=== PATIENT | male | born 1945 | race Caucasian/White ===

== ENCOUNTER 2016-12-17 07:24 | Observation (INO) | payer OTHER ==
[~2016-12-17] VITALS: Ht 172.7 cm; Wt 74.2 kg
[~2016-12-17 07:24] MED LIST: ANORO ELLIPTA1 EACH IH; ATORVASTATIN CA20 MG PO; LISINOPRIL10 MG PO; LISINOPRIL5 MG PO; OFEV150 MG PO; OMEPRAZOLE20 MG PO; ZOLPIDEM TART12.5 MG PO
[2016-12-17] MEDS ORDERED: SPORANOX100 MG PO (08:01)
[2016-12-17] MEDS ORDERED: FAMCICLOVIR500 MG PO (08:01)
[2016-12-17 08:14] LABS: HEMATOCRIT 37.6 % (38.0-50.0); MCH 28.6 PG (29.0-34.0); MEAN PLAT.VOLUME 8.7 uM^3 (9.0-12.4); PLATELET COUNT 336 K/uL (156-360); RBC DIS.WIDTH-CV 12.5 % (11.8-14.6); RBC DIS.WIDTH-SD 37.7 % (39-53); RED BLOOD COUNT 4.47 M/uL (4.00-5.50); WHITE BLOOD COUNT 10.5 K/uL (4.1-10.2)
[2016-12-17 08:17] LABS: MCV 84.1 FL (86-99)
[2016-12-17 08:27] LABS: CHLORIDE 101 mEq/L (99-109); POTASSIUM 4.3 mEq/L (3.7-5.4); SODIUM 137 mEq/L (136-147)
[2016-12-17 08:28] LABS: GLUCOSE 196 mg/dL (70-99)
[2016-12-17 08:30] LABS: ANION GAP 16 MEQ/L (2-14)
[2016-12-17 08:32] LABS: GFR ESTIMATE (CALCULATED) > 59 mL/min/
[2016-12-17 08:33] LABS: UREA NITROGEN (BUN) 17 mg/dL (9-23)
[2016-12-17 08:36] LABS: TROP-I INTERPRETATION NEGATIVE; TROPONIN-I < 0.01 ng/mL (0.0-0.30)
[2016-12-17 11:38] LABS: ADD MIUA? NO; BILIRUBIN NEGATIVE; BLOOD NEGATIVE; COLOR YELLOW ((YELLOW)); GLUCOSE (STRIP) NEGATIVE; KETONES NEGATIVE; LEUKOCYTES NEGATIVE; NITRITE NEGATIVE; PROTEIN (STRIP) NEGATIVE
[2016-12-17] MEDS ORDERED: FLONASE16 G1 BOTH NARES (11:40)
[2016-12-17] MEDS ORDERED: IMODIUM A-D2 M2 PO (11:42)
[2016-12-17] MEDS ORDERED: TUMS500 MG PO (11:43)
[2016-12-17 11:53] LABS: SPECIFIC GRAVITY 1.074 (1.000-1.030)
[2016-12-17 13:15] VITALS: BP 123/71
[2016-12-17] MEDS ORDERED: OFEV150 MG PO (13:38)
[2016-12-17 15:10] LABS: INTER. NORMALIZED RATIO 1.2; PROTHROMBIN TIME 12.1 (9.2-11.2); PTT 31.9 (25-32)
[2016-12-17 16:57] VITALS: BP 156/70
[2016-12-17 17:52] LABS: TROP-I INTERPRETATION NEGATIVE; TROPONIN-I < 0.01 ng/mL (0.0-0.30)
[2016-12-17 18:57] LABS: METH RESISTANT S AUREUS PCR NEGATIVE (NEGATIVE)
[2016-12-17 19:16] LABS: PROBE CHECK PASS; SPECIMEN PROCESSING CONTROL PASS
[2016-12-17 21:30] VITALS: BP 126/66
[2016-12-17 22:19] LABS: INFLUENZA A VIRAL ANTIGEN NEGATIVE; INFLUENZA B VIRAL ANTIGEN NEGATIVE
[2016-12-18 00:30] VITALS: BP 131/63
[2016-12-18 01:32] LABS: TROP-I INTERPRETATION NEGATIVE; TROPONIN-I 0.02 ng/mL (0.0-0.30)
[2016-12-18 04:12] VITALS: BP 120/61
[2016-12-18 07:29] VITALS: BP 123/73
[2016-12-18 10:25] VITALS: BP 128/67
[2016-12-18 12:27] VITALS: BP 113/57
[2016-12-18] MEDS ORDERED: LEVAQUIN500 MG PO (16:03)
[2016-12-18 16:35] VITALS: BP 148/70
== END 2016-12-18 17:32 | disposition home or self-care (01) ==
LOC: EME 07:24 → EDOF 11:51 → 5WEST 11:51
PROVIDERS: Internal Medicine; Internal Medicine Pulmonary Disease; Nurse Practitioner Family
PROC: 0BBJ3ZX Excision of Left Lower Lung Lobe, Percutaneous Approach, Diagnostic (ICD-10-PCS; principal; 2016-12-18)
DX: R06.02 Shortness of breath (principal); R41.0 Disorientation, unspecified; B39.2 Pulmonary histoplasmosis capsulati, unspecified; J84.10 Pulmonary fibrosis, unspecified; J44.9 Chronic obstructive pulmonary disease, unspecified; R91.8 Other nonspecific abnormal finding of lung field; R73.03 Prediabetes; K21.9 Gastro-esophageal reflux disease without esophagitis; R63.4 Abnormal weight loss; R50.9 Fever, unspecified; E78.5 Hyperlipidemia, unspecified; Z88.0 Allergy status to penicillin; Z88.1 Allergy status to other antibiotic agents; Z87.891 Personal history of nicotine dependence; Z82.49 Family history of ischemic heart disease and other diseases of the circulatory system
CPT/HCPCS: 70450; 71260; 77012; 80048; 81003; 82803; 84484; 85027; 85610; 85730; 87070; 87075; 87205; 87449; 87502; 87641; 93005; 94640; 99281; 99285; G0378; J1650; J1956; J3010

== ENCOUNTER 2017-01-07 07:30 | Day surgery (SDC) | payer OTHER ==
[~2017-01-07] VITALS: Ht 172.7 cm; Wt 71.0 kg
[~2017-01-07 07:30] MED LIST changes: +FAMCICLOVIR500 MG PO; +FLONASE16 G1 BOTH NARES; +IMODIUM A-D2 M2 PO; +LEVAQUIN500 MG PO; +OFEV100 MG PO; +PRILOSEC20 MG PO; +REMERON15 M2 PO; +SPORANOX100 MG PO; +TUMS500 MG PO
[2017-01-07 08:10] VITALS: BP 121/67
[2017-01-07 09:21] LABS: HEMATOCRIT 35.3 % (38.0-50.0); MCH 26.9 PG (29.0-34.0); MCHC 31.7 G/DL (30.0-36.0); MCV 84.9 FL (86-99); MEAN PLAT.VOLUME 9.2 uM^3 (9.0-12.4); PLATELET COUNT 303 K/uL (156-360); RBC DIS.WIDTH-CV 14.1 % (11.8-14.6); RBC DIS.WIDTH-SD 43.2 % (39-53); RED BLOOD COUNT 4.16 M/uL (4.00-5.50); WHITE BLOOD COUNT 10.1 K/uL (4.1-10.2)
[2017-01-07] MEDS ORDERED: HYDROCODON-ACE1 EAC7 PO (11:45)
[2017-01-07] MEDS ORDERED: COLACE100 MG PO (11:45)
[2017-01-07 12:44] VITALS: BP 118/59
[2017-01-07 13:36] VITALS: BP 136/65
[2017-01-08] MEDS ORDERED: PROAIR HFA8.5 GM IH (13:17)
[2017-01-08] MEDS ORDERED: LISINOPRIL5 MG PO (13:18)
== END 2017-01-07 14:44 | disposition home or self-care (01) ==
LOC: SDC 07:30
PROVIDERS: Thoracic Surgery (Cardiothoracic Vascular Surgery)
PROC: 07B74ZX Excision of Thorax Lymphatic, Percutaneous Endoscopic Approach, Diagnostic (ICD-10-PCS; principal; 2017-01-07)
DX: C34.32 Malignant neoplasm of lower lobe, left bronchus or lung (principal); Z87.891 Personal history of nicotine dependence; J84.10 Pulmonary fibrosis, unspecified; B39.9 Histoplasmosis, unspecified; J44.9 Chronic obstructive pulmonary disease, unspecified; Z86.14 Personal history of Methicillin resistant Staphylococcus aureus infection; I10 Essential (primary) hypertension; E11.9 Type 2 diabetes mellitus without complications; K21.9 Gastro-esophageal reflux disease without esophagitis; Z87.828 Personal history of other (healed) physical injury and trauma; Z88.0 Allergy status to penicillin; Z88.1 Allergy status to other antibiotic agents
CPT/HCPCS: 71010; 85027; 86850; 86900; 86901; 87102; 88305; 88341 TC; 88342 TC; J0330; J2250; J2405; J2710; J3010

== ENCOUNTER 2017-01-07 20:30 | Inpatient (IN) | payer OTHER ==
[~2017-01-07] VITALS: Ht 172.7 cm; Wt 75.1 kg
[~2017-01-07 20:30] MED LIST changes: +COLACE100 MG PO; +HYDROCODON-ACE1 EAC7 PO
[2017-01-07 21:24] LABS: EOSINOPHIL (%) 1.8 % (0-5); EOSINOPHIL COUNT 0.2 K/uL (0-0.3); HEMATOCRIT 32.3 % (38.0-50.0); IMMATURE GRANULOCYTE (%) 0.7 % (0.0-0.7); IMMATURE GRANULOCYTE COUNT 0.1 K/uL; LYMPHOCYTE COUNT 0.9 K/uL (1.0-2.8); MCH 27.4 PG (29.0-34.0); MCHC 32.2 G/DL (30.0-36.0); MCV 85.2 FL (86-99); MEAN PLAT.VOLUME 8.9 uM^3 (9.0-12.4); MONOCYTE (%) 8.9 % (3-12); MONOCYTE COUNT 0.9 K/uL (0-0.8); NEUTROPHIL (%) 79.3 % (45-76); PLATELET COUNT 295 K/uL (156-360); RBC DIS.WIDTH-CV 13.8 % (11.8-14.6); RBC DIS.WIDTH-SD 42.8 % (39-53); RED BLOOD COUNT 3.79 M/uL (4.00-5.50); WHITE BLOOD COUNT 10.1 K/uL (4.1-10.2)
[2017-01-07 21:42] LABS: CHLORIDE 102 mEq/L (99-109)
[2017-01-07 21:43] LABS: POTASSIUM 4.1 mEq/L (3.7-5.4); SODIUM 138 mEq/L (136-147)
[2017-01-07 21:44] LABS: GLUCOSE 158 mg/dL (70-99)
[2017-01-07 21:46] LABS: ANION GAP 12 MEQ/L (2-14)
[2017-01-07 21:48] LABS: GFR ESTIMATE (CALCULATED) > 59 mL/min/
[2017-01-07 21:49] LABS: UREA NITROGEN (BUN) 19 mg/dL (9-23)
[2017-01-07 22:18] LABS: TROP-I INTERPRETATION NEGATIVE; TROPONIN-I 0.01 ng/mL (0.0-0.30)
[2017-01-07 23:41] LABS: ADD MIUA? NO; BILIRUBIN NEGATIVE; BLOOD NEGATIVE; COLOR YELLOW ((YELLOW)); GLUCOSE (STRIP) NEGATIVE; KETONES NEGATIVE; LEUKOCYTES NEGATIVE; NITRITE NEGATIVE; PROTEIN (STRIP) 30; SPECIFIC GRAVITY 1.018 (1.000-1.030); UCUL ADDED? NO; UROBILINOGEN 0.2 MG/DL (0.2-1.0)
[2017-01-08 00:17] LABS: INFLUENZA A VIRAL ANTIGEN NEGATIVE; INFLUENZA B VIRAL ANTIGEN NEGATIVE
[2017-01-08 05:42] VITALS: BP 125/63
[2017-01-08 08:58] VITALS: BP 121/70
[2017-01-08] MEDS ORDERED: PROAIR HFA8.5 GM IH (13:17)
[2017-01-08] MEDS ORDERED: LISINOPRIL5 MG PO (13:18)
[2017-01-08 16:02] VITALS: BP 145/66
[2017-01-08 22:36] VITALS: BP 117/62
[2017-01-09 04:00] VITALS: BP 122/74
[2017-01-09 06:32] LABS: HEMATOCRIT 34.5 % (38.0-50.0); MCH 26.7 PG (29.0-34.0); MCHC 30.4 G/DL (30.0-36.0); MCV 87.8 FL (86-99); MEAN PLAT.VOLUME 9.2 uM^3 (9.0-12.4); PLATELET COUNT 265 K/uL (156-360); RBC DIS.WIDTH-CV 13.6 % (11.8-14.6); RBC DIS.WIDTH-SD 43.4 % (39-53); RED BLOOD COUNT 3.93 M/uL (4.00-5.50)
[2017-01-09 06:33] LABS: WHITE BLOOD COUNT 6.6 K/uL (4.1-10.2)
[2017-01-09 07:08] LABS: ALKALINE PHOSPHATASE 89 IU/L (3-129); ANION GAP 13 MEQ/L (2-14); CHLORIDE 102 MEQ/L (99-109); GFR ESTIMATE (CALCULATED) > 59 mL/min/; GLUCOSE 183 mg/dL (70-99); POTASSIUM 4.1 MEQ/L (3.7-5.4); SAMPLE HEMOLYSIS CHECK 0; SAMPLE ICTERIC CHECK 0; SAMPLE LIPEMIA CHECK 0; SODIUM 138 MEQ/L (136-147); TOTAL BILIRUBIN 0.5 MG/DL (0.0-1.0); UREA NITROGEN (BUN) 13 mg/dL (9-23)
[2017-01-09 07:25] VITALS: BP 120/67
[2017-01-09 08:57] LABS: INTERNAL CONTROL VALID? YES
[2017-01-09 11:25] VITALS: BP 126/69
[2017-01-09] MEDS ORDERED: LEVOFLOXACIN750 MG PO (16:08)
[2017-01-09] MEDS ORDERED: PREDNISONE5 MG PO (16:10)
[2017-01-09] MEDS ORDERED: ACIDOPHILUS LA1 EACH PO (16:10)
== END 2017-01-09 16:47 | disposition home or self-care (01) | DRG 191 ==
LOC: EME 20:30 → 5EAST 01-08 02:32 → EDOF 01-08 02:32 → 5EAST 01-08 05:37
PROVIDERS: Emergency Medicine; Internal Medicine
DX: J44.0 Chronic obstructive pulmonary disease with (acute) lower respiratory infection (principal); J20.9 Acute bronchitis, unspecified; C34.32 Malignant neoplasm of lower lobe, left bronchus or lung; C77.1 Secondary and unspecified malignant neoplasm of intrathoracic lymph nodes; J84.112 Idiopathic pulmonary fibrosis; R78.5 Finding of other psychotropic drug in blood; I10 Essential (primary) hypertension; R73.03 Prediabetes; K21.9 Gastro-esophageal reflux disease without esophagitis; Z88.0 Allergy status to penicillin; Z88.1 Allergy status to other antibiotic agents; Z87.891 Personal history of nicotine dependence
CPT/HCPCS: 71010; 71020; 71260; 80048; 80053; 81003; 83605; 83880; 84145 90; 84484; 85025; 85027; 86850; 86900; 86901; 87040; 87102; 87449; 87493; 87502; 88305; 88341 TC; 88342 TC; 93005; 94640; 94799; 99281; 99285; J0330; J1956; J2250; J2405; J2710; J3010; J3370; J7512

== ENCOUNTER 2017-02-13 17:23 | Inpatient (IN) | payer OTHER ==
[~2017-02-13] VITALS: Ht 172.7 cm; Wt 74.6 kg
[~2017-02-13 17:23] MED LIST changes: +ACIDOPHILUS LA1 EACH PO; +COMPAZINE10 MG PO; +CYANOCOBALAM1000 MCG PO; +DRONABINOL2.5 MG PO; +LEVOFLOXACIN750 MG PO; +MIRTAZAPINE15 MG PO; +PREDNISONE5 MG PO; +PROAIR HFA8.5 GM IH; +ZOFRAN8 MG PO
[2017-02-13 17:58] LABS: MCH 25.5 PG (29.0-34.0); MCHC 32.1 G/DL (30.0-36.0); MCV 79.5 FL (86-99); MEAN PLAT.VOLUME 8.3 uM^3 (9.0-12.4); RBC DIS.WIDTH-CV 15.3 % (11.8-14.6); RBC DIS.WIDTH-SD 44.3 % (39-53); RED BLOOD COUNT 3.65 M/uL (4.00-5.50)
[2017-02-13 17:59] LABS: PLATELET COUNT 204 K/uL (156-360); WHITE BLOOD COUNT 1.4 K/uL (4.1-10.2)
[2017-02-13 18:06] LABS: CHLORIDE 96 mEq/L (99-109); POTASSIUM 3.8 mEq/L (3.7-5.4); SODIUM 131 mEq/L (136-147)
[2017-02-13 18:09] LABS: GLUCOSE 132 mg/dL (70-99)
[2017-02-13 18:10] LABS: ANION GAP 12 MEQ/L (2-14)
[2017-02-13 18:11] LABS: TOTAL BILIRUBIN 0.7 mg/dL (0.0-1.0)
[2017-02-13 18:12] LABS: ALKALINE PHOSPHATASE 97 IU/L (3-129); GFR ESTIMATE (CALCULATED) > 59 mL/min/
[2017-02-13 18:13] LABS: UREA NITROGEN (BUN) 22 mg/dL (9-23)
[2017-02-13 18:17] LABS: TROP-I INTERPRETATION NEGATIVE; TROPONIN-I < 0.01 ng/mL (0.0-0.30)
[2017-02-13 19:36] LABS: ADD MIUA? NO; BILIRUBIN NEGATIVE; BLOOD NEGATIVE; COLOR YELLOW ((YELLOW)); GLUCOSE (STRIP) 150; KETONES NEGATIVE; LEUKOCYTES NEGATIVE; NITRITE NEGATIVE; PROTEIN (STRIP) 30; SPECIFIC GRAVITY 1.015 (1.000-1.030); UCUL ADDED? NO; UROBILINOGEN 0.2 MG/DL (0.2-1.0)
[2017-02-13 19:57] LABS: ABS NEUTROPHIL COUNT 0.5; BAND NEUTROPHILS 2.8 % (0-8.0); EOSINOPHIL ABS CT 0; INSTRUMENT ABS NEUTROPHIL CT 0.7 K/uL; METAMYELOCYTES 0.9 %
[2017-02-13 19:58] LABS: LYMPHOCYTES 60.5 % (15.0-45.0); SEG.NEUTROPHILS 32.1 % (46.0-76.0)
[2017-02-13] MEDS ORDERED: PROBIOTIC1 EAC1 PO (20:20)
[2017-02-13] MEDS ORDERED: FOLIC ACID1 MG PO (20:21)
[2017-02-13] MEDS ORDERED: PAIN RELIEF EX500 MG PO (20:23)
[2017-02-13 22:50] VITALS: BP 128/69
[2017-02-14] VITALS (10 sets, daily range): BP systolic 115–153; BP diastolic 58–77
[2017-02-14 01:11] LABS: TROP-I INTERPRETATION NEGATIVE; TROPONIN-I < 0.01 ng/mL (0.0-0.30)
[2017-02-14 06:11] LABS: ANISOCYTOSIS 1+; OVALOCYTES 1+; PLATELET CLUMPS PRESENT - PLATELET COUNT APPEARS ADQ.
[2017-02-14 06:23] LABS: HEMATOCRIT 24.8 % (38.0-50.0); MCH 25.4 PG (29.0-34.0); MCHC 31.5 G/DL (30.0-36.0); MCV 80.8 FL (86-99); MEAN PLAT.VOLUME 9.1 uM^3 (9.0-12.4); PLATELET COUNT 178 K/uL (156-360); RBC DIS.WIDTH-CV 15.7 % (11.8-14.6); RBC DIS.WIDTH-SD 45.4 % (39-53); RED BLOOD COUNT 3.07 M/uL (4.00-5.50)
[2017-02-14 06:42] LABS: ANION GAP 10 MEQ/L (2-14); CHLORIDE 99 MEQ/L (99-109); GFR ESTIMATE (CALCULATED) > 59 mL/min/; GLUCOSE 115 mg/dL (70-99); POTASSIUM 3.5 MEQ/L (3.7-5.4); SAMPLE HEMOLYSIS CHECK 0; SAMPLE ICTERIC CHECK 0; SAMPLE LIPEMIA CHECK 0; SODIUM 133 MEQ/L (136-147); UREA NITROGEN (BUN) 19 mg/dL (9-23)
[2017-02-14 06:46] LABS: TROP-I INTERPRETATION NEGATIVE; TROPONIN-I < 0.01 ng/mL (0.0-0.30)
[2017-02-14 06:57] LABS: WHITE BLOOD COUNT 1.1 K/uL (4.1-10.2)
[2017-02-15 06:42] LABS: ALKALINE PHOSPHATASE 68 IU/L (3-129); ANION GAP 10 MEQ/L (2-14); CHLORIDE 96 MEQ/L (99-109); GFR ESTIMATE (CALCULATED) > 59 mL/min/; POTASSIUM 3.6 MEQ/L (3.7-5.4); SAMPLE HEMOLYSIS CHECK 0; SAMPLE ICTERIC CHECK 0; SAMPLE LIPEMIA CHECK 0; SODIUM 132 MEQ/L (136-147); UREA NITROGEN (BUN) 13 mg/dL (9-23)
[2017-02-15 07:01] LABS: GLUCOSE 84 mg/dL (70-99)
[2017-02-15 07:13] VITALS: BP 120/54
[2017-02-15 07:15] LABS: ANISOCYTOSIS 1+; HYPOCHROMASIA 1+; MICROCYTOSIS 1+; PLAT.SUFFICIENCY ADEQUATE; PLATELET CLUMPS PRESENT - PLATELET COUNT APPEARS ADQ.
[2017-02-15 11:16] LABS: ABS NEUTROPHIL COUNT 0.1; ATYPICAL LYMPHOCYTE 3.6 %; BAND NEUTROPHILS 0.9 % (0-8.0); EOSINOPHIL ABS CT 0.1; EOSINOPHILS 8.2 % (0-5.0); HEMATOCRIT 33.3 % (38.0-50.0); INSTRUMENT ABS NEUTROPHIL CT 0.2 K/uL; LYMPHOCYTES 74.6 % (15.0-45.0); MCHC 32.1 G/DL (30.0-36.0); METAMYELOCYTES 0.9 %; NUCLEATED RBC'S 0.9; PLATELET COUNT UNABLE TO REPORT K/uL (156-360); RBC DIS.WIDTH-SD 44.3 % (39-53); RED BLOOD COUNT 4.11 M/uL (4.00-5.50); SEG.NEUTROPHILS 8.2 % (46.0-76.0); SMUDGE CELLS 7.3; WHITE BLOOD COUNT 1.2 K/uL (4.1-10.2)
[2017-02-15 16:04] VITALS: BP 130/68
[2017-02-15 22:30] VITALS: BP 151/75
[2017-02-16 08:35] VITALS: BP 148/75
[2017-02-16 10:26] LABS: HEMATOCRIT 34.7 % (38.0-50.0); MCHC 32.3 G/DL (30.0-36.0); MCV 80.7 FL (86-99); RBC DIS.WIDTH-CV 15.3 % (11.8-14.6); RBC DIS.WIDTH-SD 44.7 % (39-53)
[2017-02-16 10:29] LABS: HEMATOCRIT 34.8 % (38.0-50.0); MCH 25.9 PG (29.0-34.0); MCHC 32.2 G/DL (30.0-36.0); MCV 80.6 FL (86-99); MEAN PLAT.VOLUME 9.6 uM^3 (9.0-12.4); RBC DIS.WIDTH-CV 15.3 % (11.8-14.6); RBC DIS.WIDTH-SD 44.6 % (39-53); RED BLOOD COUNT 4.32 M/uL (4.00-5.50)
[2017-02-16 10:40] LABS: PLATELET COUNT 95 K/uL (156-360); WHITE BLOOD COUNT 0.7 K/uL (4.1-10.2)
[2017-02-16 10:42] LABS: ANION GAP 15 MEQ/L (2-14); CHLORIDE 93 MEQ/L (99-109); GFR ESTIMATE (CALCULATED) > 59 mL/min/; POTASSIUM 3.6 MEQ/L (3.7-5.4); SAMPLE HEMOLYSIS CHECK 0; SAMPLE ICTERIC CHECK 0; SAMPLE LIPEMIA CHECK 0; SODIUM 131 MEQ/L (136-147); UREA NITROGEN (BUN) 13 mg/dL (9-23)
[2017-02-16 10:44] LABS: GLUCOSE 183 mg/dL (70-99)
[2017-02-16 10:55] LABS: WHITE BLOOD COUNT 0.7 K/uL (4.1-10.2)
[2017-02-16 13:17] LABS: ABS NEUTROPHIL COUNT 0.1; ANISOCYTOSIS 1+; EOSINOPHIL ABS CT 0; INSTRUMENT ABS NEUTROPHIL CT 0.1 K/uL; MEAN PLAT.VOLUME 9.3 uM^3 (9.0-12.4); OVALOCYTES 1+; PLAT.SUFFICIENCY DECREASED
[2017-02-16 13:18] LABS: PLATELET COUNT 94 K/uL (156-360)
[2017-02-16 16:57] VITALS: BP 163/78
[2017-02-16 23:10] VITALS: BP 154/79
[2017-02-17 07:24] LABS: ALKALINE PHOSPHATASE 76 IU/L (3-129); ANION GAP 9 MEQ/L (2-14); CHLORIDE 93 MEQ/L (99-109); GFR ESTIMATE (CALCULATED) > 59 mL/min/; POTASSIUM 3.4 MEQ/L (3.7-5.4); SAMPLE HEMOLYSIS CHECK 0; SAMPLE ICTERIC CHECK 0; SAMPLE LIPEMIA CHECK 0; SODIUM 128 MEQ/L (136-147); UREA NITROGEN (BUN) 14 mg/dL (9-23)
[2017-02-17 07:25] LABS: GLUCOSE 106 mg/dL (70-99); TOTAL BILIRUBIN 0.7 MG/DL (0.0-1.0)
[2017-02-17 07:39] LABS: MCH 26.2 PG (29.0-34.0); MCHC 32.4 G/DL (30.0-36.0); MCV 80.7 FL (86-99); RBC DIS.WIDTH-CV 15.2 % (11.8-14.6); RBC DIS.WIDTH-SD 44.7 % (39-53); RED BLOOD COUNT 4.09 M/uL (4.00-5.50)
[2017-02-17 08:05] LABS: ABS NEUTROPHIL COUNT 0.2; ANISOCYTOSIS 1+; ATYPICAL LYMPHOCYTE 3.2 %; BAND NEUTROPHILS 3.2 % (0-8.0); EOSINOPHIL ABS CT 0.1; EOSINOPHILS 4.9 % (0-5.0); INSTRUMENT ABS NEUTROPHIL CT 0.2 K/uL; LYMPHOCYTES 53.2 % (15.0-45.0); MICROCYTOSIS 2+; PLAT.SUFFICIENCY DECREASED; SEG.NEUTROPHILS 16.1 % (46.0-76.0); SPHEROCYTES 1+; WHITE BLOOD COUNT 1.2 K/uL (4.1-10.2)
[2017-02-17 08:24] VITALS: BP 159/79
[2017-02-17 08:51] LABS: PLATELET COUNT 63 K/uL (156-360)
[2017-02-17 16:51] VITALS: BP 135/67
[2017-02-18 00:04] VITALS: BP 146/70
[2017-02-18 06:43] LABS: ANION GAP 12 MEQ/L (2-14); CHLORIDE 94 MEQ/L (99-109); GFR ESTIMATE (CALCULATED) > 59 mL/min/; GLUCOSE 113 mg/dL (70-99); POTASSIUM 3.5 MEQ/L (3.7-5.4); SAMPLE HEMOLYSIS CHECK 0; SAMPLE ICTERIC CHECK 0; SAMPLE LIPEMIA CHECK 0; SODIUM 133 MEQ/L (136-147); UREA NITROGEN (BUN) 16 mg/dL (9-23)
[2017-02-18 06:50] VITALS: BP 130/67
[2017-02-18 07:07] LABS: MCH 26.1 PG (29.0-34.0); MCHC 32.5 G/DL (30.0-36.0); MCV 80.4 FL (86-99); RBC DIS.WIDTH-CV 15.2 % (11.8-14.6); RBC DIS.WIDTH-SD 44.6 % (39-53); RED BLOOD COUNT 3.98 M/uL (4.00-5.50)
[2017-02-18 07:09] LABS: WHITE BLOOD COUNT 1.7 K/uL (4.1-10.2)
[2017-02-18] MEDS ORDERED: Non-Formulary PO (08:12)
[2017-02-18] MEDS ORDERED: MYCOSTATIN 100,60 ML PO (08:12)
[2017-02-18 08:46] LABS: ABS NEUTROPHIL COUNT 0.7; EOSINOPHIL ABS CT 0; IMM.PLATELET FRACTION 1.9 (1-7); INSTRUMENT ABS NEUTROPHIL CT 0.6 K/uL; MEAN PLAT.VOLUME 8.9 uM^3 (9.0-12.4); PLATELET COUNT 47 K/uL (156-360)
[2017-03-01] MEDS ORDERED: SPORANOX PO (07:39)
== END 2017-02-18 14:14 | disposition home health service (06) | DRG 809 ==
LOC: EME → EDBD 17:23 → EME 17:23 → 5EAST 21:13 → EDOF 21:13 → 5EAST 22:17
PROVIDERS: Emergency Medicine; Hospitalist; Internal Medicine; Nurse Practitioner Adult Health; Pediatrics
PROC: 30233N1 Transfusion of Nonautologous Red Blood Cells into Peripheral Vein, Percutaneous Approach (ICD-10-PCS; principal; 2017-02-14)
DX: D70.9 Neutropenia, unspecified (principal); E87.1 Hypo-osmolality and hyponatremia; C34.32 Malignant neoplasm of lower lobe, left bronchus or lung; E87.6 Hypokalemia; D64.9 Anemia, unspecified; J84.112 Idiopathic pulmonary fibrosis; J44.9 Chronic obstructive pulmonary disease, unspecified; K21.9 Gastro-esophageal reflux disease without esophagitis; I10 Essential (primary) hypertension; D69.6 Thrombocytopenia, unspecified
CPT/HCPCS: 36415; 71010; 80048; 80048 91; 80053; 81003; 83605; 84484; 85025; 85027; 86850; 86900; 86901; 86920; 87040; 87086; 87103; 87385 90; 92610 GN; 93005; 94760; 94799; 96360; 97530 GP; 99202; 99281; 99285; J0692; J1644; J1956; J3480; J7030; J7040; J7050; J7120; P9016

== ENCOUNTER 2017-04-16 08:58 | Day surgery (SDC) | payer OTHER ==
[~2017-04-16] VITALS: Ht 172.7 cm; Wt 68.0 kg
[~2017-04-16 08:58] MED LIST changes: +FOLIC ACID1 MG PO; +MYCOSTATIN 100,60 ML PO; +Non-Formulary PO; +PAIN RELIEF EX500 MG PO; +PROBIOTIC1 EAC1 PO; +SPORANOX PO
[2017-04-16] MEDS ORDERED: ZYRTEC-D1 TABLE1 PO (09:53)
== END 2017-04-16 11:35 | disposition home or self-care (01) ==
LOC: CATH 08:58
DX: I87.8 Other specified disorders of veins (principal); C34.90 Malignant neoplasm of unspecified part of unspecified bronchus or lung; J44.9 Chronic obstructive pulmonary disease, unspecified; Z87.891 Personal history of nicotine dependence; Z88.0 Allergy status to penicillin; Z88.1 Allergy status to other antibiotic agents; Z82.49 Family history of ischemic heart disease and other diseases of the circulatory system
CPT/HCPCS: C1752; C1894; J1644; J2250; J3010; S0020

== ENCOUNTER 2017-04-19 09:03 | Inpatient (IN) | payer OTHER ==
[~2017-04-19] VITALS: Ht 172.7 cm; Wt 70.3 kg
[~2017-04-19 09:03] MED LIST changes: +ZYRTEC-D1 TABLE1 PO
[2017-04-19 10:23] LABS: HEMATOCRIT 27.4 % (38.0-50.0); MCH 30.5 PG (29.0-34.0); MCHC 32.5 G/DL (30.0-36.0); MCV 93.8 FL (86-99); MEAN PLAT.VOLUME 9.6 uM^3 (9.0-12.4); PLATELET COUNT 316 K/uL (156-360); RBC DIS.WIDTH-CV 26.6 % (11.8-14.6); RBC DIS.WIDTH-SD 88.4 % (39-53); RED BLOOD COUNT 2.92 M/uL (4.00-5.50)
[2017-04-19 10:46] LABS: CHLORIDE 103 mEq/L (99-109)
[2017-04-19 10:47] LABS: SODIUM 139 mEq/L (136-147)
[2017-04-19 10:48] LABS: GLUCOSE 157 mg/dL (70-99)
[2017-04-19 10:50] LABS: ANION GAP 12 MEQ/L (2-14)
[2017-04-19 10:52] LABS: GFR ESTIMATE (CALCULATED) > 59 mL/min/
[2017-04-19 10:53] LABS: UREA NITROGEN (BUN) 13 mg/dL (9-23)
[2017-04-19 11:19] LABS: TROP-I INTERPRETATION NEGATIVE; TROPONIN-I 0.03 ng/mL (0.0-0.30)
[2017-04-19 11:48] LABS: ABS NEUTROPHIL COUNT 6.8; ANISOCYTOSIS 2+; BASOPHILS 0.9 %; EOSINOPHIL ABS CT 0.2; EOSINOPHILS 2.6 % (0-5.0); LYMPHOCYTES 15.7 % (15.0-45.0); MACROCYTES 1+; MICROCYTOSIS 1+; PLAT.SUFFICIENCY ADEQUATE; SEG.NEUTROPHILS 75.6 % (46.0-76.0); SMUDGE CELLS 2.6
[2017-04-19 15:03] VITALS: BP 129/60
[2017-04-19] MEDS ORDERED: ALLERGY REL1 MG/1 M1 PO (18:34)
[2017-04-19] MEDS ORDERED: TUMS500 MG PO (18:38)
[2017-04-19] MEDS ORDERED: FLORASTOR250 MG PO (18:41)
[2017-04-19 19:47] LABS: TROP-I INTERPRETATION NEGATIVE; TROPONIN-I 0.06 ng/mL (0.0-0.30)
[2017-04-19 20:00] VITALS: BP 147/86
[2017-04-20 01:01] LABS: TROP-I INTERPRETATION NEGATIVE; TROPONIN-I 0.03 ng/mL (0.0-0.30)
[2017-04-20 03:30] VITALS: BP 133/68
[2017-04-20 06:39] LABS: ANION GAP 15 MEQ/L (2-14); CHLORIDE 102 MEQ/L (99-109); GFR ESTIMATE (CALCULATED) > 59 mL/min/; GLUCOSE 183 mg/dL (70-99); POTASSIUM 4.3 MEQ/L (3.7-5.4); SAMPLE HEMOLYSIS CHECK 0; SAMPLE ICTERIC CHECK 0; SAMPLE LIPEMIA CHECK 0; SODIUM 138 MEQ/L (136-147); UREA NITROGEN (BUN) 15 mg/dL (9-23)
[2017-04-20 07:50] VITALS: BP 109/60
[2017-04-20 07:50] LABS: INTERNAL CONTROL VALID? YES
[2017-04-20 11:39] VITALS: BP 130/60
[2017-04-20 15:45] VITALS: BP 120/61
[2017-04-20 20:50] VITALS: BP 1229/64; BP 129/64
[2017-04-20 23:52] VITALS: BP 121/80
[2017-04-21 04:45] VITALS: BP 111/60
[2017-04-21 07:54] LABS: HEMATOCRIT 27.4 % (38.0-50.0); MCH 31.4 PG (29.0-34.0); MCHC 32.5 G/DL (30.0-36.0); MCV 96.8 FL (86-99); MEAN PLAT.VOLUME 9.5 uM^3 (9.0-12.4); NRBC (%) 0.1 /100 WBC (0-0); PLATELET COUNT 338 K/uL (156-360); RBC DIS.WIDTH-CV 26.9 % (11.8-14.6); RBC DIS.WIDTH-SD 91.4 % (39-53); RED BLOOD COUNT 2.83 M/uL (4.00-5.50)
[2017-04-21 08:00] VITALS: BP 123/59
[2017-04-21 08:15] LABS: ANION GAP 15 MEQ/L (2-14); CHLORIDE 102 MEQ/L (99-109); GFR ESTIMATE (CALCULATED) > 59 mL/min/; GLUCOSE 150 mg/dL (70-99); SAMPLE HEMOLYSIS CHECK 0; SAMPLE ICTERIC CHECK 0; SAMPLE LIPEMIA CHECK 0; SODIUM 142 MEQ/L (136-147); UREA NITROGEN (BUN) 22 mg/dL (9-23); VANCOMYCIN, TROUGH 12.5 MCG/ML (10-20)
[2017-04-21 08:16] LABS: POTASSIUM 3.3 MEQ/L (3.7-5.4)
[2017-04-21 11:57] VITALS: BP 116/57
[2017-04-21 15:57] VITALS: BP 155/73
[2017-04-21 19:31] VITALS: BP 149/73
[2017-04-21 23:38] VITALS: BP 140/67
[2017-04-22 03:19] VITALS: BP 161/72
[2017-04-22 06:45] LABS: HEMATOCRIT 26.6 % (38.0-50.0); MCH 31.1 PG (29.0-34.0); MCHC 32.7 G/DL (30.0-36.0); MEAN PLAT.VOLUME 9.2 uM^3 (9.0-12.4); NRBC (%) 0.3 /100 WBC (0-0); PLATELET COUNT 314 K/uL (156-360); RBC DIS.WIDTH-CV 26.5 % (11.8-14.6); RBC DIS.WIDTH-SD 89.1 % (39-53); WHITE BLOOD COUNT 12.3 K/uL (4.1-10.2)
[2017-04-22] MEDS ORDERED: LEVAQUIN750 MG PO (07:09)
[2017-04-22] MEDS ORDERED: MILLIPRED5 MG PO (07:09)
[2017-04-22] MEDS ORDERED: OXYGEN MC (07:11)
[2017-04-22 07:19] LABS: ALKALINE PHOSPHATASE 78 IU/L (3-129); ANION GAP 13 MEQ/L (2-14); CHLORIDE 104 MEQ/L (99-109); GFR ESTIMATE (CALCULATED) > 59 mL/min/; GLUCOSE 148 mg/dL (70-99); POTASSIUM 3.8 MEQ/L (3.7-5.4); SAMPLE HEMOLYSIS CHECK 0; SAMPLE ICTERIC CHECK 0; SAMPLE LIPEMIA CHECK 0; SODIUM 141 MEQ/L (136-147); TOTAL BILIRUBIN 0.3 MG/DL (0.0-1.0); UREA NITROGEN (BUN) 28 mg/dL (9-23)
[2017-04-22 08:29] VITALS: BP 148/60
== END 2017-04-22 12:23 | disposition home or self-care (01) | DRG 189 ==
LOC: EME 09:03 → 5WEST 14:15 → EDOF 14:15 → 5WEST 14:56
PROVIDERS: Hospitalist; Internal Medicine; Internal Medicine Pulmonary Disease; Nurse Practitioner Family; Pediatrics; Physician Assistant
DX: J96.21 Acute and chronic respiratory failure with hypoxia (principal); B39.2 Pulmonary histoplasmosis capsulati, unspecified; J18.9 Pneumonia, unspecified organism; C79.51 Secondary malignant neoplasm of bone; J84.112 Idiopathic pulmonary fibrosis; C34.90 Malignant neoplasm of unspecified part of unspecified bronchus or lung; E11.9 Type 2 diabetes mellitus without complications; J44.0 Chronic obstructive pulmonary disease with (acute) lower respiratory infection; E83.51 Hypocalcemia; J44.1 Chronic obstructive pulmonary disease with (acute) exacerbation; D63.8 Anemia in other chronic diseases classified elsewhere; E78.5 Hyperlipidemia, unspecified; E87.6 Hypokalemia; I10 Essential (primary) hypertension; K21.9 Gastro-esophageal reflux disease without esophagitis; Z79.899 Other long term (current) drug therapy; Z87.891 Personal history of nicotine dependence; R91.1 Solitary pulmonary nodule; R59.0 Localized enlarged lymph nodes; I70.0 Atherosclerosis of aorta
CPT/HCPCS: 71010; 71020; 71275; 80048; 80053; 80202; 83880; 84484; 85007; 85027; 87449; 93005; 93306; 94640; 94640 76; 94799; 99202; 99281; 99285; G0378; J0610; J1650; J1940; J1956; J2930; J3370; J3475; J7030; J7040; J7050; J7512

== ENCOUNTER 2017-05-05 18:35 | Inpatient (IN) | payer OTHER ==
[~2017-05-05] VITALS: Ht 172.7 cm; Wt 73.2 kg
[~2017-05-05 18:35] MED LIST changes: +ALLERGY REL1 MG/1 M1 PO; +FLORASTOR250 MG PO; +LEVAQUIN750 MG PO; +MILLIPRED5 MG PO; +OXYGEN MC
[2017-05-05 19:35] LABS: HEMATOCRIT 31.6 % (38.0-50.0); MCH 32.7 PG (29.0-34.0); MCHC 32.9 G/DL (30.0-36.0); MCV 99.4 FL (86-99); RBC DIS.WIDTH-CV 23.3 % (11.8-14.6); RBC DIS.WIDTH-SD 85.4 % (39-53); RED BLOOD COUNT 3.18 M/uL (4.00-5.50); WHITE BLOOD COUNT 13.5 K/uL (4.1-10.2)
[2017-05-05 19:37] LABS: CHLORIDE 98 mEq/L (99-109); POTASSIUM 4.4 mEq/L (3.7-5.4); SODIUM 135 mEq/L (136-147)
[2017-05-05 19:38] LABS: GLUCOSE 109 mg/dL (70-99)
[2017-05-05 19:40] LABS: ANION GAP 11 MEQ/L (2-14)
[2017-05-05 19:42] LABS: GFR ESTIMATE (CALCULATED) > 59 mL/min/
[2017-05-05 19:43] LABS: UREA NITROGEN (BUN) 21 mg/dL (9-23)
[2017-05-05 19:49] LABS: TROP-I INTERPRETATION NEGATIVE; TROPONIN-I < 0.01 ng/mL (0.0-0.30)
[2017-05-05 20:48] LABS: EOSINOPHIL (%) 1.1 % (0-5); EOSINOPHIL COUNT 0.2 K/uL (0-0.3); IMMATURE GRANULOCYTE (%) 20.9 % (0.0-0.7); IMMATURE GRANULOCYTE COUNT 2.8 K/uL; LYMPHOCYTE COUNT 1.2 K/uL (1.0-2.8); MONOCYTE (%) 2.2 % (3-12); MONOCYTE COUNT 0.3 K/uL (0-0.8); PLATELET CLUMPS PRESENT - PLATELET COUNTS APPEARS DECREASED
[2017-05-05 21:26] LABS: ADD MIUA? NO; BILIRUBIN NEGATIVE; BLOOD NEGATIVE; COLOR YELLOW ((YELLOW)); GLUCOSE (STRIP) NEGATIVE; KETONES NEGATIVE; LEUKOCYTES NEGATIVE; NITRITE NEGATIVE; PROTEIN (STRIP) 30; SPECIFIC GRAVITY 1.016 (1.000-1.030); UCUL ADDED? NO; UROBILINOGEN 0.2 MG/DL (0.2-1.0)
[2017-05-05] MEDS ORDERED: MIRTAZAPINE30 MG PO (21:26)
[2017-05-05] MEDS ORDERED: PROBIOTIC1 EAC1 PO (21:27)
[2017-05-05] MEDS ORDERED: LIDOCAINE-PRIL1 EACH TP (21:28)
[2017-05-05] MEDS ORDERED: TYLENOL PM1 CAPLET PO (21:28)
[2017-05-05] MEDS ORDERED: CALCITRIOL0.25 MCG PO (21:28)
[2017-05-05 21:31] LABS: PLATELET COUNT UNABLE TO REPORT K/uL (156-360)
[2017-05-05 23:39] VITALS: BP 122/64
[2017-05-06] VITALS (7 sets, daily range): BP systolic 119–172; BP diastolic 58–74
[2017-05-06 02:12] LABS: INFLUENZA A VIRAL ANTIGEN NEGATIVE; INFLUENZA B VIRAL ANTIGEN NEGATIVE
[2017-05-06 06:42] LABS: HEMATOCRIT 25.4 % (38.0-50.0); MCH 34.1 PG (29.0-34.0); MCHC 33.9 G/DL (30.0-36.0); MCV 100.8 FL (86-99); MEAN PLAT.VOLUME 10.5 uM^3 (9.0-12.4); RBC DIS.WIDTH-CV 22.7 % (11.8-14.6); RBC DIS.WIDTH-SD 83.7 % (39-53); WHITE BLOOD COUNT 8.2 K/uL (4.1-10.2)
[2017-05-06 06:47] LABS: PLATELET COUNT 97 K/uL (156-360); RED BLOOD COUNT 2.52 M/uL (4.00-5.50)
[2017-05-06 07:17] LABS: ANION GAP 12 MEQ/L (2-14); CHLORIDE 101 MEQ/L (99-109); GFR ESTIMATE (CALCULATED) > 59 mL/min/; POTASSIUM 4.1 MEQ/L (3.7-5.4); SAMPLE HEMOLYSIS CHECK 1; SAMPLE ICTERIC CHECK 0; SAMPLE LIPEMIA CHECK 0; SODIUM 136 MEQ/L (136-147); UREA NITROGEN (BUN) 17 mg/dL (9-23)
[2017-05-06 07:18] LABS: GLUCOSE 79 mg/dL (70-99)
[2017-05-06 07:33] LABS: INTERNAL CONTROL VALID? YES
[2017-05-06 07:46] LABS: ABS NEUTROPHIL COUNT 7.1; ANISOCYTOSIS 2+; BAND NEUTROPHILS 4.4 % (0-8.0); EOSINOPHIL ABS CT 0.1; EOSINOPHILS 1.7 % (0-5.0); INSTRUMENT ABS NEUTROPHIL CT 4.8 K/uL; LYMPHOCYTES 7.9 % (15.0-45.0); MACROCYTES 1+; MICROCYTOSIS 1+; PLAT.SUFFICIENCY DECREASED; SEG.NEUTROPHILS 81.6 % (46.0-76.0)
[2017-05-06 09:18] LABS: ALKALINE PHOSPHATASE 83 IU/L (3-129); ANION GAP 15 MEQ/L (2-14); CHLORIDE 102 MEQ/L (99-109); GFR ESTIMATE (CALCULATED) > 59 mL/min/; GLUCOSE 78 mg/dL (70-99); POTASSIUM 4.1 MEQ/L (3.7-5.4); SAMPLE HEMOLYSIS CHECK 1; SAMPLE ICTERIC CHECK 0; SAMPLE LIPEMIA CHECK 0; SODIUM 138 MEQ/L (136-147); TOTAL BILIRUBIN 0.9 MG/DL (0.0-1.0); UREA NITROGEN (BUN) 17 mg/dL (9-23)
[2017-05-06 18:16] LABS: METH RESISTANT S AUREUS PCR NEGATIVE (NEGATIVE)
[2017-05-06 18:29] LABS: PROBE CHECK PASS; SPECIMEN PROCESSING CONTROL PASS
[2017-05-07 03:49] VITALS: BP 111/60
[2017-05-07 10:00] LABS: HEMATOCRIT 25.5 % (38.0-50.0); MCH 34.4 PG (29.0-34.0); MCHC 34.1 G/DL (30.0-36.0); MCV 100.8 FL (86-99); RBC DIS.WIDTH-SD 82.1 % (39-53); RED BLOOD COUNT 2.53 M/uL (4.00-5.50); WHITE BLOOD COUNT 5.4 K/uL (4.1-10.2)
[2017-05-07 10:12] LABS: MEAN PLAT.VOLUME 9.5 uM^3 (9.0-12.4); PLAT.SUFFICIENCY DECREASED
[2017-05-07 10:13] LABS: ALKALINE PHOSPHATASE 92 IU/L (3-129); ANION GAP 11 MEQ/L (2-14); CHLORIDE 99 MEQ/L (99-109); GFR ESTIMATE (CALCULATED) > 59 mL/min/; POTASSIUM 3.5 MEQ/L (3.7-5.4); SAMPLE HEMOLYSIS CHECK 0; SAMPLE ICTERIC CHECK 0; SAMPLE LIPEMIA CHECK 0; SODIUM 133 MEQ/L (136-147); TOTAL BILIRUBIN 0.8 MG/DL (0.0-1.0); UREA NITROGEN (BUN) 13 mg/dL (9-23)
[2017-05-07 10:24] LABS: GLUCOSE 146 mg/dL (70-99)
[2017-05-07 10:34] LABS: PLATELET COUNT 66 K/uL (156-360)
[2017-05-07 11:55] VITALS: BP 113/65
[2017-05-07 15:45] VITALS: BP 122/64
[2017-05-07 20:29] VITALS: BP 135/65
[2017-05-07 23:50] VITALS: BP 138/77
[2017-05-08 04:40] VITALS: BP 137/72
[2017-05-08 08:30] LABS: HEMATOCRIT 27.5 % (38.0-50.0); MCH 34.4 PG (29.0-34.0); MCHC 34.2 G/DL (30.0-36.0); MCV 100.7 FL (86-99); MEAN PLAT.VOLUME 10.6 uM^3 (9.0-12.4); PLATELET COUNT 80 K/uL (156-360); RBC DIS.WIDTH-CV 21.5 % (11.8-14.6); RBC DIS.WIDTH-SD 77.9 % (39-53); RED BLOOD COUNT 2.73 M/uL (4.00-5.50); WHITE BLOOD COUNT 8.1 K/uL (4.1-10.2)
[2017-05-08 08:53] LABS: ALKALINE PHOSPHATASE 110 IU/L (3-129); ANION GAP 13 MEQ/L (2-14); CHLORIDE 102 MEQ/L (99-109); GFR ESTIMATE (CALCULATED) > 59 mL/min/; GLUCOSE 182 mg/dL (70-99); POTASSIUM 3.4 MEQ/L (3.7-5.4); SAMPLE HEMOLYSIS CHECK 0; SAMPLE ICTERIC CHECK 0; SAMPLE LIPEMIA CHECK 0; SODIUM 138 MEQ/L (136-147); UREA NITROGEN (BUN) 19 mg/dL (9-23)
[2017-05-08 08:55] LABS: TOTAL BILIRUBIN 0.4 MG/DL (0.0-1.0)
[2017-05-08 08:59] LABS: ABS NEUTROPHIL COUNT 7.4; ANISOCYTOSIS 2+; BAND NEUTROPHILS 4.3 % (0-8.0); EOSINOPHIL ABS CT 0; INSTRUMENT ABS NEUTROPHIL CT 6.7 K/uL; LYMPHOCYTES 3.5 % (15.0-45.0); MACROCYTES 2+; METAMYELOCYTES 1.7 %; PLAT.SUFFICIENCY DECREASED; SMUDGE CELLS 2.6
[2017-05-08 10:55] VITALS: BP 138/68
[2017-05-08 16:38] VITALS: BP 134/82
[2017-05-08 19:33] VITALS: BP 140/64
[2017-05-09] VITALS (12 sets, daily range): BP systolic 113–156; BP diastolic 65–86
[2017-05-09 07:22] LABS: HEMATOCRIT 22.4 % (38.0-50.0); MCH 34.1 PG (29.0-34.0); MCHC 33.5 G/DL (30.0-36.0); MCV 101.8 FL (86-99); MEAN PLAT.VOLUME 10.8 uM^3 (9.0-12.4); PLATELET COUNT 82 K/uL (156-360); RBC DIS.WIDTH-CV 22.1 % (11.8-14.6)
[2017-05-09 07:53] LABS: ABS NEUTROPHIL COUNT 13.4; ANISOCYTOSIS 2+; BAND NEUTROPHILS 1.8 % (0-8.0); EOSINOPHIL ABS CT 0; INSTRUMENT ABS NEUTROPHIL CT 11.8 K/uL; LYMPHOCYTES 2.7 % (15.0-45.0); MACROCYTES 1+; OVALOCYTES 1+; PLAT.SUFFICIENCY DECREASED; SCHISTOCYTES 1+; SEG.NEUTROPHILS 87.5 % (46.0-76.0)
[2017-05-09 07:56] LABS: ANION GAP 17 MEQ/L (2-14); CHLORIDE 105 MEQ/L (99-109); GFR ESTIMATE (CALCULATED) > 59 mL/min/; GLUCOSE 152 mg/dL (70-99); POTASSIUM 3.7 MEQ/L (3.7-5.4); SAMPLE HEMOLYSIS CHECK 0; SAMPLE ICTERIC CHECK 0; SAMPLE LIPEMIA CHECK 0; SODIUM 142 MEQ/L (136-147)
[2017-05-09 07:58] LABS: UREA NITROGEN (BUN) 29 mg/dL (9-23)
[2017-05-09 10:36] LABS: METH RESISTANT S AUREUS PCR ND (NEGATIVE)
[2017-05-09 13:42] LABS: BASE EXCESS -4.3 mEq/L (-3 to +3); BICARBONATE 19.5 mEq/L (22-26); CARBOXY HGB 1.3 % (0-5); METHEMOGLOBIN 1.1 % (0-1.5); PCO2 30 mm Hg (35-45); PO2 67 mm Hg (80-100); pH 7.42 (7.35-7.45)
[2017-05-09 13:43] LABS: COMMENTS - BLOOD GASES A+C+; DEVICE HHFNC; FI02 70 %; O2 FLOW 40 L/MIN; SITE LR; TOTAL RESP RATE 24 resp/min
[2017-05-09 14:56] LABS: D-DIMER ELISA 3.07 mg/L FEU (< 0.57)
[2017-05-09 22:46] LABS: MCV 94.9 FL (86-99)
[2017-05-10] VITALS (7 sets, daily range): BP systolic 106–135; BP diastolic 62–77
[2017-05-10 06:32] LABS: HEMATOCRIT 28.9 % (38.0-50.0); MCH 31.8 PG (29.0-34.0); MCHC 33.6 G/DL (30.0-36.0); MCV 94.8 FL (86-99); RBC DIS.WIDTH-CV 24.8 % (11.8-14.6); RBC DIS.WIDTH-SD 82.8 % (39-53); WHITE BLOOD COUNT 7.8 K/uL (4.1-10.2)
[2017-05-10 06:33] LABS: RED BLOOD COUNT 3.05 M/uL (4.00-5.50)
[2017-05-10 07:00] LABS: ALKALINE PHOSPHATASE 99 IU/L (3-129); ANION GAP 15 MEQ/L (2-14); CHLORIDE 107 MEQ/L (99-109); DIRECT BILIRUBIN 0.2 mg/dL (0.0-0.3); GFR ESTIMATE (CALCULATED) > 59 mL/min/; GLUCOSE 158 mg/dL (70-99); POTASSIUM 3.7 MEQ/L (3.7-5.4); SAMPLE HEMOLYSIS CHECK 0; SAMPLE ICTERIC CHECK 0; SAMPLE LIPEMIA CHECK 0; SODIUM 141 MEQ/L (136-147); UREA NITROGEN (BUN) 33 mg/dL (9-23)
[2017-05-10 09:46] LABS: MEAN PLAT.VOLUME 10.7 uM^3 (9.0-12.4)
[2017-05-10 09:54] LABS: PLATELET COUNT 54 K/uL (156-360)
[2017-05-10 09:55] LABS: PLAT.SUFFICIENCY DECREASED
[2017-05-11] VITALS (7 sets, daily range): BP systolic 129–156; BP diastolic 62–83
[2017-05-11 06:03] LABS: HEMATOCRIT 29.5 % (38.0-50.0); MCH 32.2 PG (29.0-34.0); MCHC 33.9 G/DL (30.0-36.0); MCV 94.9 FL (86-99); RBC DIS.WIDTH-CV 24.6 % (11.8-14.6); RBC DIS.WIDTH-SD 82.3 % (39-53); RED BLOOD COUNT 3.11 M/uL (4.00-5.50); WHITE BLOOD COUNT 6.8 K/uL (4.1-10.2)
[2017-05-11 06:36] LABS: ANION GAP 14 MEQ/L (2-14); CHLORIDE 108 MEQ/L (99-109); GFR ESTIMATE (CALCULATED) > 59 mL/min/; GLUCOSE 208 mg/dL (70-99); POTASSIUM 3.5 MEQ/L (3.7-5.4); SAMPLE HEMOLYSIS CHECK 0; SAMPLE ICTERIC CHECK 0; SAMPLE LIPEMIA CHECK 0; SODIUM 145 MEQ/L (136-147); UREA NITROGEN (BUN) 32 mg/dL (9-23)
[2017-05-11 06:50] LABS: IMM.PLATELET FRACTION 5.9 (1-7); MEAN PLAT.VOLUME 11.5 uM^3 (9.0-12.4); PLAT.SUFFICIENCY DECREASED; PLATELET COUNT 46 K/uL (156-360)
[2017-05-12] VITALS (8 sets, daily range): BP systolic 116–177; BP diastolic 71–102
[2017-05-12 05:32] LABS: HEMATOCRIT 28.1 % (38.0-50.0); MCH 32.7 PG (29.0-34.0); MCHC 34.5 G/DL (30.0-36.0); MCV 94.6 FL (86-99); NRBC (%) 0.2 /100 WBC (0-0); RBC DIS.WIDTH-CV 23.9 % (11.8-14.6); RBC DIS.WIDTH-SD 80.1 % (39-53); RED BLOOD COUNT 2.97 M/uL (4.00-5.50); WHITE BLOOD COUNT 10.7 K/uL (4.1-10.2)
[2017-05-12 06:49] LABS: IMM.PLATELET FRACTION 4.2 (1-7); MEAN PLAT.VOLUME 10.8 uM^3 (9.0-12.4); PLAT.SUFFICIENCY DECREASED; PLATELET COUNT 36 K/uL (156-360)
[2017-05-12 08:52] LABS: ANION GAP 12 MEQ/L (2-14); CHLORIDE 108 MEQ/L (99-109); GFR ESTIMATE (CALCULATED) > 59 mL/min/; GLUCOSE 239 mg/dL (70-99); POTASSIUM 3.2 MEQ/L (3.7-5.4); SAMPLE HEMOLYSIS CHECK 0; SAMPLE ICTERIC CHECK 0; SAMPLE LIPEMIA CHECK 0; SODIUM 145 MEQ/L (136-147); UREA NITROGEN (BUN) 29 mg/dL (9-23)
[2017-05-13] VITALS (7 sets, daily range): BP systolic 75–131; BP diastolic 40–96
== END 2017-05-13 21:16 | DRG 190 ==
LOC: EME 18:35 → EDOF 21:34 → 3EAST 21:34 → 4WEST 05-09 09:54
PROVIDERS: Hospitalist; Internal Medicine; Nurse Practitioner Adult Health; Pediatrics; Physician Assistant
PROC: 30233N1 Transfusion of Nonautologous Red Blood Cells into Peripheral Vein, Percutaneous Approach (ICD-10-PCS; principal; 2017-05-09)
DX: J44.0 Chronic obstructive pulmonary disease with (acute) lower respiratory infection (principal); J18.9 Pneumonia, unspecified organism; Y95 Nosocomial condition; B39.9 Histoplasmosis, unspecified; C34.90 Malignant neoplasm of unspecified part of unspecified bronchus or lung; J84.112 Idiopathic pulmonary fibrosis; D64.9 Anemia, unspecified; I10 Essential (primary) hypertension; E11.9 Type 2 diabetes mellitus without complications; E78.5 Hyperlipidemia, unspecified; F41.9 Anxiety disorder, unspecified; J96.11 Chronic respiratory failure with hypoxia; K21.9 Gastro-esophageal reflux disease without esophagitis; E87.3 Alkalosis; Z51.5 Encounter for palliative care; Z66 Do not resuscitate; Z86.14 Personal history of Methicillin resistant Staphylococcus aureus infection; Z99.81 Dependence on supplemental oxygen; Z87.891 Personal history of nicotine dependence; Z88.0 Allergy status to penicillin
CPT/HCPCS: 36600; 71010; 71020; 71275; 73110; 73130; 80048; 80053; 80069; 80076; 80202; 81003; 82330; 82803; 83605; 83880; 84484; 85014; 85018; 85025; 85027; 85379; 86900; 86901; 86920; 87040; 87070; 87205; 87449; 87493; 87502; 87641; 93005; 94640; 94640 76; 94667; 94668; 94760; 94799; 96372; 99202; 99281; 99285; J0610; J1200; J1650; J1940; J1956; J2060; J2185; J2270; J2505; J2930; J3370; J7050; P9016; P9040